=== PATIENT | male | born 1970 | race American Indian/Alaskan Native ===

== ENCOUNTER → 2022-06-01 | Outpatient (CLI) | payer OTHER ==
--- NOTE | 2022-06-02 13:58 | MR ---
EXAMINATION TYPE: MR lumbar spine wo con DATE OF EXAM: 06/01/2022 3:30 PM COMPARISON: CT abdomen pelvis 10/04/2015. CLINICAL INDICATION:Male, 52 years old with history of M54.50 LOW BACK PAIN; TECHNIQUE: Multi planar, multi sequence imaging was performed utilizing: T1-weighted, T2-weighted, a nd turbo inversion recovery imaging of the lumbar spine. IV Contrast: None FINDINGS: Alignment: The lumbar vertebral bodies have preserved heights and alignment. Cord: The conus medullaris and the distal spinal cord appear unremarkable with regards to their signa l intensity and morphology. Bones/Discs: Bone signal is within normal limits. Mild multilevel degenerative disc disease is noted and most pronounced at the L4-L5. There is sacralization of the L5 vertebrae. Disc desiccation at L4- L5. L1-L2: No significant disc pathology. Spinal canal is patent. The neural foramen are patent. L2-L3: No significant disc pathology. Spinal canal is patent. The neural foramen are patent. L3-L4: No significant disc pathology, there is facet joint arthropathy resulting in moderate bilatera l neural foraminal stenosis. Spinal canal is patent. L4-L5: Eccentric right disc bulge with facet joint arthropathy result in no significant spinal canal stenosis and moderate right and mild left neural foraminal stenosis. L5-S1: No significant disc pathology. Spinal canal is patent. The neural foramen are patent. IMPRESSION: 1. No definitive evidence of disc herniation or significant spinal canal stenosis. 2. Mild multilevel disc degeneration with associated osteoarthritic changes.
== END | disposition home or self-care (01) ==
LOC: RADMRIMAIN 14:12
PROVIDERS: ATTEND Physician Assistant Medical
DX: M51.36 Other intervertebral disc degeneration, lumbar region (principal)
CPT/HCPCS: 72148

== ENCOUNTER → 2023-02-17 | Outpatient (CLI) | payer OTHER ==
--- NOTE | 2023-02-17 11:42 | MR ---
EXAMINATION TYPE: MR brain wo/w con DATE OF EXAM: 02/17/2023 COMPARISON: None HISTORY: Migraines, memory loss TECHNIQUE: Multiplanar, multisequence images of the brain and brainstem is performed without and with IV contras t, utilizing 10 mL intravenous Gadavist . FINDINGS: There is artifact seen on some sequences anteriorly and in the bases and pleural artifact o r likely. Diffusion weighted images demonstrate no evidence of a recent infarct or other diffusion abnormality. There is no extra-axial fluid collection or significant white matter signal abnormality. The ventr icular system and cisternal spaces are normal in size and appearance. The brain volume is age approp riate. Midline structures demonstrate normal morphology. The craniocervical junction appears within normal limits. Post contrast images demonstrate Incidental small venous angioma right cerebellum. The dural venous sinuses appear patent. The visualized sinuses are clear and the globes are intact. Moderate t o signal noted within the right mastoid sinus suggestive of chronic mastoiditis. IMPRESSION: 1. No acute process. 2. Chronic right mastoiditis 3. Incidental small venous angioma right cerebellum
== END | disposition home or self-care (01) ==
LOC: RADMRIMAIN 10:17
PROVIDERS: ATTEND Psychiatry & Neurology Neurology
DX: G43.709 Chronic migraine without aura, not intractable, without status migrainosus (principal); H70.11 Chronic mastoiditis, right ear; Q28.3 Other malformations of cerebral vessels
CPT/HCPCS: 70553; A9585

== ENCOUNTER → 2023-08-09 | Outpatient (CLI) | payer BC ==
--- NOTE | 2023-08-10 10:01 | MR ---
EXAMINATION TYPE: MR lumbar spine wo/w con DATE OF EXAM: 08/09/2023 7:48 PM CLINICAL INDICATION:Male, 53 years old with history of M48.062 SPINAL STENOSIS, LUMBAR REGION; PHH, L ow back pain that radiates down both legs. Surgery 2021. COMPARISON: None TECHNIQUE: Multi planar, multi sequence imaging was performed utilizing: T1-weighted, T2-weighted, a nd turbo inversion recovery imaging of the lumbar spine. IV Contrast: 10 cc Gadavist. (None if empty) FINDINGS: Alignment: The lumbar vertebral bodies have preserved heights and alignment. Transitional vertebrae at S1 with rudimentary S1-S2 disc. Cord: The conus medullaris and the distal spinal cord appear unremarkable with regards to their signa l intensity and morphology. Bones/Discs: Postsurgical changes at the level of L4 and L5 posteriorly. Susceptibility artifact in t he subcutaneous tissues. There is a transitional vertebrae noted. Neural abnormal postcontrast enhanc ement. Mild degeneration with osteophyte formation and disc desiccation. The spinous processes are in close approximation to each other T12-L1: No evidence of significant spinal canal stenosis or neural foraminal stenosis. L1-L2: No evidence of significant spinal canal stenosis or neural foraminal stenosis. L2-L3: Disc bulge and facet joint arthropathy result in mild spinal canal and mild to moderate bilate ral neural foraminal stenosis. L3-L4: Disc bulge and facet joint arthropathy result in mild spinal canal and moderate bilateral neur al foraminal stenosis. L4-L5: Disc bulge and facet joint arthropathy result in mild spinal canal and moderate bilateral neur al foraminal stenosis. L5-S1: The disc is rounded posterior morphology without significant spinal canal stenosis. Facet join t arthropathy with mild to moderate bilateral bilateral neural foraminal stenosis. No significant spinal canal or neural foraminal stenosis in the remainder of the visualized levels. There is some postcontrast enhancement at the site of surgery most pronounced on series 701 image 10 and 11 years the right laminectomy and right epidural space and extending around the right neural for amen. Other findings: None. IMPRESSION: 1. Findings suspicious for epidural fibrosis likely secondary to patient's history of surgery. 2. No definitive evidence of disc herniation or significant spinal canal stenosis. 3. Mild disc degeneration with associated osteoarthritic changes.
== END | disposition home or self-care (01) ==
LOC: RADMRIMAIN 18:18
PROVIDERS: ATTEND Orthopaedic Surgery Orthopaedic Surgery of the Spine
DX: M48.062 Spinal stenosis, lumbar region with neurogenic claudication (principal); M51.16 Intervertebral disc disorders with radiculopathy, lumbar region; M47.26 Other spondylosis with radiculopathy, lumbar region; M51.26 Other intervertebral disc displacement, lumbar region; M16.11 Unilateral primary osteoarthritis, right hip; M62.830 Muscle spasm of back; E66.9 Obesity, unspecified
CPT/HCPCS: 72158; A9585

== ENCOUNTER → 2024-07-12 | Outpatient (CLI) | payer BC ==
--- NOTE | 2024-07-12 15:05 | MR ---
EXAMINATION TYPE: MR angio head wo con DATE OF EXAM: 07/12/2024 COMPARISON: Correlation MRI brain 02/17/2023 HISTORY: 54-year-old male Migraines, G43.719, D18.00 TECHNIQUE: High-resolution 3-D [id number] imaging of the [place]. Rotational 3-D reconst ructions generated on a dedicated independent workstation. FINDINGS: The bilateral vertebral and carotid arteries as well as the remainder of the posterior circulation ar e patent. Patent bilateral posterior communicating arteries are demonstrated. The internal carotid arteries and remainder of the anterior circulation are patent. No significant stenosis or aneurysmal change is seen. IMPRESSION: No large vessel intracranial arterial occlusion, significant stenosis, or aneurysmal change is seen. [facility], , 07/12/2024 3:03 PM
--- NOTE | 2024-07-12 15:24 | MR ---
EXAMINATION TYPE: MR brain wo/w con DATE OF EXAM: 07/12/2024 COMPARISON: 02/17/2023 HISTORY: 54-year-old male migraines, G43.719, D18.00 TECHNIQUE: Multiplanar, multisequence images of the brain and brainstem were acquired before and aft er administration of 10 mL IV Gadavist. Diffusion weighted imaging is performed. FINDINGS: No evidence for acute infarction, hemorrhage, mass, mass effect, midline shift, herniation, effacemen t of basal cisterns, or extra-axial fluid collection. The ventricles and sulci are age-appropriate. Major intracranial flow voids are intact. T2/FLAIR weighted sequences show no white matter signal abnormality. Midline structures demonstrate normal morphology. The craniocervical junction is normal. Post contrast images demonstrate no evidence of pathologic enhancement. Dural venous sinuses are pat ent. Incidental small venous angioma right cerebellum redemonstrated. Mild mucosal thickening bilateral ethmoid air cells. Some fluid remains trapped within the inferior r ight mastoid air cells. Trace mucosal thickening floors of the maxillary sinuses. Globes are intact. IMPRESSION: 1. Incidental small venous angioma of the right cerebellum redemonstrated. 2. No acute intracranial abnormality or enhancing lesions seen. No white matter signal abnormality. 3. Mild chronic ethmoid and maxillary sinus disease. 4. Ongoing trapped fluid right mastoid air cells. Correlate for any mastoid pain to exclude mastoidit is. [facility], , 07/12/2024 3:21 PM
== END | disposition home or self-care (01) ==
LOC: RADMRIMAIN 10:05
PROVIDERS: ATTEND Psychiatry & Neurology Neurology
DX: G43.719 Chronic migraine without aura, intractable, without status migrainosus (principal); D18.00 Hemangioma unspecified site
CPT/HCPCS: 70544; 70553

== ENCOUNTER 2025-02-15 19:43 | Emergency (ER) | payer BC ==
--- NOTE | 2025-02-15 20:22 | ED ---
Male Urogenital HPI - General Chief complaint: Urogenital Stated complaint: Urogenital Time Seen by Provider: 02/15/25 20:17 Source: patient, RN notes reviewed Mode of arrival: ambulatory Limitations: no limitations - History of Present Illness Initial comments: 54-year-old male presenting for episode of urinary incontinence prior to arrival. States he woke up this morning and has been experiencing pain with urination. Denies injury or trauma to the back however states he did go for a hike today and has been sore in the back of the legs from the hike. States he was walking around his house when he had an episode of urinary incontinence. Shortly after, he started to notice pain in his right flank. He states he has had 1 other episode of urinary incontinence a long time ago but did not seek medical attention for this. He denies saddle anesthesia, loss of bowel control, numbness/tingling/weakness of the bilateral lower extremities. He does report a low back surgery in September 2022. Denies penile discharge. He has a history of hypertension. - Related Data Previous Rx's Medication Instructions Recorded Hydrocodone/Acetaminophen [[place] 1 each PO Q6HR PRN #20 tab 10/04/15 5-325] Ondansetron Odt [Zofran ODT] 4 mg PO Q8HR PRN #20 tab 10/04/15 Allergies Allergy/AdvReac Type Severity Reaction Status Date / Time No Known Allergies Allergy Verified 02/15/25 19:49 Review of Systems ROS Statement: Those systems with pertinent positive or pertinent negative responses have been documented in the HPI. ROS Other: All systems not noted in ROS Statement are negative. Past Medical History Past Medical History: Hypertension History of Any Multi-Drug Resistant Organisms: None Reported Past Surgical History: Orthopedic Surgery Additional Past Surgical History / Comment(s): fused left toe, cspine fusion, right shoudler surgery Past Psychological History: No Psychological Hx Reported Smoking Status: Never smoker Past Alcohol Use History: Occasional Past Drug Use History: None Reported General Exam Limitations: no limitations General appearance: alert, in no apparent distress Head exam: Present: atraumatic, normocephalic, normal inspection Eye exam: Present: normal appearance, PERRL, EOMI. Absent: scleral icterus, conjunctival injection, periorbital swelling GI/Abdominal exam: Present: soft, normal bowel sounds. Absent: distended, tenderness, guarding, rebound, rigid Extremities exam: Present: normal inspection, full ROM, normal capillary refill. Absent: tenderness, pedal edema, joint swelling, calf tenderness Back exam: Present: normal inspection, full ROM, other (Full strength and range of motion of bilateral lower extremities. No saddle anesthesia. Full sensation in DP pulses bilaterally). Absent: tenderness (No midline tenderness), CVA tenderness (R), CVA tenderness (L) Neurological exam: Present: alert, oriented X3 Psychiatric exam: Present: normal affect, normal mood Skin exam: Present: warm, dry, intact, normal color. Absent: rash Course Vital Signs 02/15/25 02/15/25 19:45 22:04 Temperature 98.0 F 98.1 F Pulse Rate 113 H 92 Respiratory 18 16 Rate Blood Pressure 136/84 106/56 O2 Sat by Pulse 97 97 Oximetry Medical Decision Making - Medical Decision Making Was pt. sent in by a medical professional or institution (, PA, DIVISION ENGINEER, urgent care, hospital, or custodial...) When possible be specific @ -No Did you speak to anyone other than the patient for history (EMS, parent, family, police, friend...)? What history was obtained from this source @ -No Did you review nursing and triage notes (agree or disagree)? Why? @ -I reviewed and agree with nursing and triage notes Were old charts reviewed (outside hosp., previous admission, EMS record, old EKG, old radiological studies, urgent care reports/EKG's, custodial records)? Report findings @ -No old charts were reviewed Differential Diagnosis (chest pain, altered mental status, abdominal pain women, abdominal pain men, vaginal bleeding, weakness, fever, dyspnea, syncope, headach e, dizziness, GI bleed, back pain, seizure, CVA, palpatations, mental health, musculoskeletal)? @ -Differential Back Pain: Strain, zoster, cauda equina syndrome, epidural abscess, vertebral osteomyel itis, discitis, fracture, subluxation, disc herniation, DJD, spinal stenosis, dissection, AAA, pancreatitis, peptic ulcer disease, pyelonephritis, kidney stone, this is not meant to be an all-inclusive list. EKG interpreted by me (3pts min.). @ -None X-rays interpreted by me (1pt min.). @ -None done CT interpreted by me (1pt min.). @ -CT abdomen pelvis unremarkable for acute disease U/S interpreted by me (1pt. min.). @ -None done What testing was considered but not performed or refused? (CT, X-rays, U/S, labs)? Why? @ -None What meds were considered but not given or refused? Why? @ -None Did you discuss the management of the patient with other professionals (professionals i.e. , PA, DIVISION ENGINEER, lab, RT, psych nurse, rn social work, senior investigator, teacher, tactical debriefer officer, caser shoe parts)? Give summary @ -No Was smoking cessation discussed for >3mins.? @ -No Was critical care preformed (if so, how long)? @ -No Were there social determinants of health that impacted care today? How? (Homelessness, low income, unemployed, alcoholism, drug addiction, transportation, low edu. Level, literacy, decrease access to med. care, longterm, rehab)? @ -No Was there de-escalation of care discussed even if they declined (Discuss DNR or withdrawal of care, Hospice)? DNR status @ -No What co-morbidities impacted this encounter? (DM, HTN, Smoking, COPD, CAD, Cancer, CVA, ARF, Chemo, Hep., AIDS, mental health diagnosis, sleep apnea, morbid obesity)? @ -None Was patient admitted / discharged? Hospital course, mention meds given and route, prescriptions, significant lab abnormalities, going to OR and other pertinent info. @ -Discharge. 54-year-old male presenting for episode of urinary incontinence prior to arrival with associated dysuria and right flank pain. Denies back injury or trauma. Denies saddle anesthesia, loss of bowel control, numbness/tingling/weakness of the bilateral lower extremities. Neurovascularly intact. Patient is afebrile with no CVA tenderness. Provided with Toradol and IV fluids for supportive care. Lab work largely unremarkable. Urinalysis negative for blood or bacteria. CT negative for acute disease. Discussed negative results with patient. Upon reevaluation, patient is asymptomatic. I do not identify emergent etiology at this point. Patient can be safely discharged home with strict return precautions and close PCP follow-up. Case was discussed with my ED attending Dr. Savage. Undiagnosed new problem with uncertain prognosis? @ -No Drug Therapy requiring intensive monitoring for toxicity (Heparin, Nitro, Insulin, Cardizem)? @ -No Were any procedures done? @ -No Diagnosis/symptom? @ -Urinary incontinence Acute, or Chronic, or Acute on Chronic? @ -Acute Uncomplicated (without systemic symptoms) or Complicated (systemic symptoms)? @ -Uncomplicated Side effects of treatment? @ -No Exacerbation, Progression, or Severe Exacerbation? @ -No Poses a threat to life or bodily function? How? (Chest pain, [place], [place], pneumonia, PE, COPD, DKA, ARF, appy, cholecystitis, CVA, Diverticulitis, Homicidal, Suicidal, threat to staff... and all critical care pts) @ -Not at this time - Lab Data Result diagrams: 02/15/25 20:27 02/15/25 20:27 Lab Results 02/15/25 02/15/25 02/15/25 Range/Units 20:27 20:27 20:27 WBC 8.77 (4.50-10.00) 10*3/uL RBC 4.51 (4.40-5.60) 10*6/uL Hgb 13.6 (13.0-17.0) g/dL Hct 39.1 L (39.6-50.0) % MCV 86.7 (80.0-97.0) fL MCH 30.2 (27.0-32.0) pg MCHC 34.8 (32.0-37.0) g/dL Plt Count 253 (140-440) 10*3/uL MPV 9.8 (9.5-12.2) fL Immature Gran % (Auto) 0.3 % Neutrophils % 57.6 % Lymphocytes % 32.7 % Monocytes % 7.3 % Eosinophils % 1.4 % Basophils % 0.7 % Immature Gran # 0.03 (0.00-0.04) 10*3/uL Neutrophils # 5.05 (1.80-7.70) 10*3/uL Lymphocytes # 2.87 (0.90-5.00) 10*3/uL Monocytes # 0.64 (0.20-1.00) 10*3/uL Eosinophils # 0.12 (0.04-0.35) 10*3/uL Basophils # 0.06 (0.00-0.10) 10*3/uL Sodium 137 (137-145) mmol/L Potassium 3.9 (3.5-5.1) mmol/L Chloride 102 (98-107) mmol/L Carbon Dioxide 27 (22-30) mmol/L Anion Gap 8 mmol/L BUN 26 H (9-20) mg/dL Creatinine 0.94 (0.66-1.25) mg/dL Est GFR (CKD-EPI)AfAm >90 (>60 ml/min/1.73 sqM) Est GFR (CKD-EPI)NonAf >90 (>60 ml/min/1.73 sqM) Glucose 181 H (74-99) mg/dL Plasma Lactic Acid [place] 1.7 (0.7-2.0) mmol/L Calcium 9.4 (8.4-10.2) mg/dL Total Bilirubin 0.4 (0.2-1.3) mg/dL AST 25 (17-59) U/L ALT 47 (4-49) U/L Alkaline Phosphatase 50 (38-126) U/L Total Protein 6.7 (6.3-8.2) g/dL Albumin 4.0 (3.5-5.0) g/dL Urine Color Urine Appearance (Clear) Urine pH (5.0-8.0) Ur Specific [place] (1.001-1.035) Urine Protein (Negative) Urine Glucose (UA) (Negative) Urine Ketones (Negative) Urine Blood (Negative) Urine Nitrite (Negative) Urine Bilirubin (Negative) Urine Urobilinogen (<2.0) mg/dL Ur Leukocyte Esterase (Negative) 02/15/25 Range/Units 21:06 WBC (4.50-10.00) 10*3/uL RBC (4.40-5.60) 10*6/uL Hgb (13.0-17.0) g/dL Hct (39.6-50.0) % MCV (80.0-97.0) fL MCH (27.0-32.0) pg MCHC (32.0-37.0) g/dL Plt Count (140-440) 10*3/uL MPV (9.5-12.2) fL Immature Gran % (Auto) % Neutrophils % % Lymphocytes % % Monocytes % % Eosinophils % % Basophils % % Immature Gran # (0.00-0.04) 10*3/uL Neutrophils # (1.80-7.70) 10*3/uL Lymphocytes # (0.90-5.00) 10*3/uL Monocytes # (0.20-1.00) 10*3/uL Eosinophils # (0.04-0.35) 10*3/uL Basophils # (0.00-0.10) 10*3/uL Sodium (137-145) mmol/L Potassium (3.5-5.1) mmol/L Chloride (98-107) mmol/L Carbon Dioxide (22-30) mmol/L Anion Gap mmol/L BUN (9-20) mg/dL Creatinine (0.66-1.25) mg/dL Est GFR (CKD-EPI)AfAm (>60 ml/min/1.73 sqM) Est GFR (CKD-EPI)NonAf (>60 ml/min/1.73 sqM) Glucose (74-99) mg/dL Plasma Lactic Acid [place] (0.7-2.0) mmol/L Calcium (8.4-10.2) mg/dL Total Bilirubin (0.2-1.3) mg/dL AST (17-59) U/L ALT (4-49) U/L Alkaline Phosphatase (38-126) U/L Total Protein (6.3-8.2) g/dL Albumin (3.5-5.0) g/dL Urine Color Colorless Urine Appearance Clear (Clear) Urine pH 6.0 (5.0-8.0) Ur Specific [place] >1.050 H (1.001-1.035) Urine Protein Negative (Negative) Urine Glucose (UA) Negative (Negative) Urine Ketones Negative (Negative) Urine Blood Negative (Negative) Urine Nitrite Negative (Negative) Urine Bilirubin Negative (Negative) Urine Urobilinogen <2.0 (<2.0) mg/dL Ur Leukocyte Esterase Negative (Negative) Disposition Clinical Impression: Urinary incontinence Disposition: HOME SELF-CARE Condition: Stable Instructions (If sedation given, give patient instructions): Urinary Incontinence (ED) Additional Instructions: Follow-up with your PCP as discussed. Please return to the Emergency Department if symptoms worsen or any other concerns. Is patient prescribed a controlled substance at d/c from ED?: No Referrals: Serge Hope MD [Primary Care Provider] - 1-2 days Time of Disposition: 22:30
[2025-02-15] MEDS: KETOROLAC 15 MG/ML 1 ML VIAL IVP STA (20:26)
[2025-02-15] MEDS: SODIUM CHLORIDE 0.9% 1,000 ML IV STA (20:26)
--- NOTE | 2025-02-15 20:58 | CT ---
EXAMINATION TYPE: CT abdomen pelvis w con DATE OF EXAM: 02/15/2025 8:47 PM COMPARISON: Prior CT abdomen/pelvis study 10/04/2015. CLINICAL INDICATION: Male, 54 years old with history of right flank pain with urinary incontinence; r ight flank pain TECHNIQUE: Axial CT abdomen pelvis w con;Sagittal and coronal reformats were created on a separate w orkstation. Contrast used:100 mL of Isovue 300 with IV Contrast, (none if empty) Oral contrast used: without Oral Contrast (none if empty) CT DLP: 1619.7 mGycm, Automated exposure control for dose reduction was used. FINDINGS: LOWER CHEST: Unremarkable ABDOMEN LIVER: Unremarkable GALLBLADDER AND BILE DUCTS: Unremarkable. PANCREAS: Unremarkable. SPLEEN: Unremarkable. ADRENAL GLANDS: Unremarkable. KIDNEYS AND URETERS: No evidence of hydronephrosis or renal calculus. The ureters are unremarkable. PELVIS BLADDER: No evidence for wall thickening or mass given limitations of exam. REPRODUCTIVE: Unremarkable. ABDOMEN & PELVIS STOMACH AND BOWEL: Stomach and duodenum are unremarkable. Appendix unremarkable. No evidence of bowel obstruction. PERITONEUM/RETROPERITONEUM: No evidence of pneumoperitoneum or free fluid. VASCULATURE: No evidence of aortic aneurysm. MUSCULOSKELETAL: No acute osseous abnormalities LYMPH NODES: No gross evidence for lymphadenopathy. SOFT TISSUE/ABDOMINAL WALL: Unremarkable IMPRESSION: No acute abnormality in the abdomen/pelvis or CT findings to explain reported symptoms. [facility], , 02/15/2025 8:56 PM
[2025-02-15 21:14] LABS: Basophils # (A) 0.06 10*3/uL (0.00-0.10); Basophils % (A) 0.7 %; Eosinophils # (A) 0.12 10*3/uL (0.04-0.35); Eosinophils % (A) 1.4 %; HCT 39.1 % (39.6-50.0); HGB 13.6 g/dL (13.0-17.0); Lymphocytes # (A) 2.87 10*3/uL (0.90-5.00); Lymphocytes % (A) 32.7 %; MCH 30.2 pg (27.0-32.0); MCHC 34.8 g/dL (32.0-37.0); MCV 86.7 fL (80.0-97.0); Mean Platelet Volume 9.8 fL (9.5-12.2); Monocytes # (A) 0.64 10*3/uL (0.20-1.00); Monocytes % (A) 7.3 %; Neutrophils # (A) 5.05 10*3/uL (1.80-7.70); Neutrophils % (A) 57.6 %; Platelet Count 253 10*3/uL (140-440); RBC 4.51 10*6/uL (4.40-5.60); RDW 13.8 % (11.5-14.5); WBC 8.77 10*3/uL (4.50-10.00)
[2025-02-15 21:15] LABS: Appearance,Urine Clear (Clear); Bilirubin,Urine Negative (Negative); Blood,Urine Negative (Negative); Color,Urine Colorless; Glucose,Urine (UA) Negative (Negative); Ketones,Urine Negative (Negative); Leukocyte Esterase,Urine Negative (Negative); Nitrite,Urine Negative (Negative); Protein,Urine Negative (Negative); Urobilinogen,Urine <2.0 mg/dL (<2.0)
[2025-02-15 21:16] LABS: Specific Gravity,Urine >1.050 (1.001-1.035)
[2025-02-15 21:24] LABS: ALT 47 U/L (4-49); AST 25 U/L (17-59); African American GFR (CKD) >90 (>60 ml/min/1.73 sqM); Alkaline Phosphatase 50 U/L (38-126); Anion Gap 8 mmol/L; Blood Urea Nitrogen 26 mg/dL (9-20); Calcium 9.4 mg/dL (8.4-10.2); Carbon Dioxide 27 mmol/L (22-30); Chloride 102 mmol/L (98-107); Glucose 181 mg/dL (74-99); Non-African American GFR(CKD) >90 (>60 ml/min/1.73 sqM); Potassium 3.9 mmol/L (3.5-5.1); Sodium 137 mmol/L (137-145); Total Bilirubin 0.4 mg/dL (0.2-1.3); Total Protein 6.7 g/dL (6.3-8.2)
[2025-02-15 22:05] VITALS: BP 106/56; PULSE 92; RESP 16; TEMP 98.1
== END 2025-02-15 22:42 | disposition home or self-care (01) ==
LOC: EC 19:43
DX: R32 Unspecified urinary incontinence (principal)
CPT/HCPCS: 36415; 80053; 83605; 85025; 81003; 74177; 99284; 96374; 96361; J1885; Q9967